=== PATIENT | female | born 1990 | race Caucasian/White ===

== ENCOUNTER 2018-09-20 11:54 | Emergency (ER) | payer OTHER ==
[~2018-09-20 11:54] MED LIST: IBUP-2077 PO; PNV91TAB3 PO
[2018-09-20 12:32] LABS: APPEARANCE,URINE Cloudy (CLEAR); BILIRUBIN,URINE Negative (NEGATIVE); COLOR,URINE Yellow (YELLOW); GLUCOSE, URINE (UA) Negative (NEGATIVE); KETONES,URINE 15 mg/dL (NEGATIVE); LEUKOCYTE ESTERASE ,URINE Small (NEGATIVE); NITRATE,URINE Negative (NEGATIVE); OCCULT BLOOD,URINE Negative (NEGATIVE); PH,URINE >=9.0 (5.0-8.0); PROTEIN,URINE Trace mg/dL (NEGATIVE)
[2018-09-20 12:35] LABS: HCG,QUAL RESULT NEGATIVE (NEGATIVE)
[2018-09-20] MEDS ORDERED: METOCLOPRAMIDE 10 MG/2 ML VIAL ONE (12:43)
[2018-09-20] MEDS ORDERED: ONDANSETRON HCL 4 MG/2 ML VIAL ONE (12:43)
[2018-09-20 12:53] LABS: RBC,URINE 0-1 /HPF (0-1); WBC,URINE 0-1 /HPF (0-1)
[2018-09-20 12:54] LABS: BACTERIA,URINE Few /HPF (None Seen)
[2018-09-20 12:55] LABS: BASOPHILS % (AUTO) 2.2 % (0.0-5.0); EOSINOPHILS % (AUTO) 0.1 % (0.0-8.0); HEMATOCRIT 43.5 % (36-48); LYMPHOCYTES % (AUTO) 10.1 % (21.0-51.0); MEAN CORPUSCULAR HEMOGLOBIN 32.6 pg (27.0-33.0); MEAN CORPUSCULAR VOLUME 93.4 fL (79-99); MONOCYTES % (AUTO) 3.1 % (3.0-13.0); NEUTROPHILS % (AUTO) 84.5 % (40.0-77.0); NUCLEATED RED BLOOD CELLS 0.1 % (0.0-0.19); PLATELET COUNT (AUTO) 173 K/uL (130-400); RED BLOOD CELL COUNT(AUTO) 4.66 MIL/uL (4.00-5.50); RED CELL DISTRIBUTION WIDTH 12.9 % (11.0-15.5)
[2018-09-20 13:14] LABS: CREATININE 0.8 mg/dL (0.5-1.5); POTASSIUM 4.1 mmol/L (3.5-5.1)
[2018-09-20] MEDS ORDERED: DiphenhydrAMINE HCL 50 MG/ML VIAL ONE (13:33)
== END 2018-09-20 14:58 | disposition home or self-care (01) ==
LOC: EDH 11:54
DX: G43.909 Migraine, unspecified, not intractable, without status migrainosus (principal); Z98.890 Other specified postprocedural states
CPT/HCPCS: 36415; 80048; 81001; 81025; 85025; 96374; 96375; 99283; J1200; J2405; J2765

== ENCOUNTER 2019-06-12 11:59 | Emergency (ER) | payer MEDICAID ==
[2019-06-12 12:47] LABS: APPEARANCE,URINE CLOUDY (CLEAR); BILIRUBIN,URINE SMALL (NEGATIVE); COLOR,URINE RED (YELLOW); GLUCOSE, URINE (UA) NEGATIVE (NEGATIVE); KETONES,URINE NEGATIVE (NEGATIVE); LEUKOCYTE ESTERASE ,URINE TRACE (NEGATIVE); NITRATE,URINE NEGATIVE (NEGATIVE); OCCULT BLOOD,URINE LARGE (NEGATIVE); PROTEIN,URINE 30 mg/dL (NEGATIVE); UROBILINOGEN,URINE 0.2 mg/dL (0.2-1.0)
[2019-06-12 13:08] LABS: HCG,QUAL RESULT NEGATIVE (NEGATIVE)
[2019-06-12 13:39] LABS: RBC,URINE TNTC /HPF (0-1); WBC,URINE 0-1 /HPF (0-1)
[2019-06-12 13:40] LABS: BACTERIA,URINE Few /HPF (None Seen)
== END 2019-06-12 13:46 | disposition home or self-care (01) ==
LOC: EDH 11:59
DX: R31.9 Hematuria, unspecified (principal); R35.0 Frequency of micturition; G43.909 Migraine, unspecified, not intractable, without status migrainosus; Z72.0 Tobacco use
CPT/HCPCS: 81001; 81025; 87088

== ENCOUNTER 2024-06-01 18:37 | Emergency (ER) | payer SELFPAY ==
[~2024-06-01] VITALS: Ht 157.5 cm; Wt 47.6 kg
[~2024-06-01 18:37] MED LIST changes: +KETO10 PO; +NITR100C4 PO; +TAMS-1 PO
[2024-06-01] MEDS: 0.9%NACL 1000ML 1,000 ML IV ONE (19:00)
[2024-06-01 19:02] LABS: BASOPHILS # (AUTO) 0.05 K/uL (0.00-0.20); BASOPHILS % (AUTO) 0.4 % (0.0-5.0); EOSINOPHILS # (AUTO) 0.01 K/uL (0.00-0.70); EOSINOPHILS % (AUTO) 0.1 % (0.0-8.0); IMMATURE GRANULOCYTE ABSOLUTE 0.04 K/uL (0-1); LYMPHOCYTES # (AUTO) 1.6 K/uL (1.0-4.8); LYMPHOCYTES % (AUTO) 12.9 % (21.0-51.0); MEAN CORPUSCULAR HEMOGLOBIN 32.2 pg (27.0-33.0); MEAN CORPUSCULAR HGB CONC 33.9 g/dL (32.0-36.0); MONOCYTES # (AUTO) 0.6 K/uL (0.1-1.0); MONOCYTES % (AUTO) 5.3 % (3.0-13.0); NEUTROPHILS # (AUTO) 9.9 K/uL (1.8-7.7); PLATELET COUNT (AUTO) 235 K/uL (130-400); RED BLOOD CELL COUNT(AUTO) 4.63 MIL/uL (4.00-5.50); RED CELL DISTRIBUTION WIDTH 13.4 % (11.0-15.5); WHITE BLOOD COUNT (AUTO) 12.2 K/uL (4.8-10.8)
[2024-06-01 19:03] LABS: APPEARANCE,URINE CLOUDY (CLEAR); BILIRUBIN,URINE NEGATIVE (NEGATIVE); COLOR,URINE YELLOW (YELLOW); GLUCOSE, URINE (UA) NEGATIVE (NEGATIVE); KETONES,URINE 40 mg/dL (NEGATIVE); LEUKOCYTE ESTERASE ,URINE 250 Leu/uL (NEGATIVE); NITRATE,URINE 1+ (NEGATIVE); OCCULT BLOOD,URINE LARGE (NEGATIVE); PROTEIN,URINE 50 mg/dL (NEGATIVE); UROBILINOGEN,URINE 0.2 mg/dL (0.2-1.0)
[2024-06-01] MEDS: ondanSETRON 4MG INJ IVP ONE (19:04)
[2024-06-01] MEDS: morPHINE 2 MG SYG IVP ONE (19:05)
[2024-06-01 19:06] LABS: ADD UA MICROSCOPIC YES
[2024-06-01 19:08] LABS: BACTERIA,URINE RARE /HPF (None Seen); MUCUS,URINE FEW LPF (None Seen); OTHER CASTS, URINE 2 /LPF (None Seen); SQUAMOUS EPITHELIAL CELL,UR FEW /HPF (0-2)
[2024-06-01] MEDS: cefTRIAXone 1G VIAL IVPB ONE (19:28)
[2024-06-01 19:33] LABS: CREATININE 0.9 mg/dL (0.5-1.0); POTASSIUM 3.8 mmol/L (3.5-5.1)
--- NOTE | 2024-06-01 20:58 | HMCIMG ---
US OB <14 WEEKS HISTORY: Pelvic pain COMPARISON: None FINDINGS: The uterus measures 8 cm in length with a 9 mm endometrial thickness. There is no identified intrauterine gestation. There is no adnexal mass. There is minimal amount of free fluid in the pelvis. The ovaries are unremarkable in size and echogenicity. There also appears to be normal ovarian vascularity. IMPRESSION: There is no identified intrauterine gestation. Small amount of free fluid in the pelvis
--- NOTE | 2024-06-01 20:58 | HMCIMG ---
US ABDOMINAL COMPLETE HISTORY: Abdominal pain COMPARISON: None FINDINGS: The liver is unremarkable. The gallbladder is free of calculi or wall thickening or pericholecystic fluid. Common duct measures 2 mm. The pancreas is unremarkable. The kidneys are unremarkable in size and echogenicity. There is no hydronephrosis or nephrolithiasis. Both kidneys measure roughly 9.5 cm length. Spleen is unremarkable. The inferior vena cava and aorta are unremarkable. IMPRESSION: Normal study
--- NOTE | 2024-06-01 21:42 | ERN ---
General Chief Complaint: Flank Pain Stated Complaint: LEFT FLANK PAIN HX OF KIDNEY STONES Time Seen by MD: 18:39 Time Seen by Midlevel: 18:39 Source: patient History of Present Illness Initial Comments Patient is a 34-year-old female with a past medical history of kidney stones presenting to the emergency department with left lower quadrant that radiates to her left flank. The pain started at 3:00 p.m. with associated nausea and vomiting. Patient believes she may have a kidney stone. Denies being at this time. She does report being sexually active and does not use any protection at this time. Allergies: Coded Allergies: No Known Drug Allergies (Unverified Allergy, Unknown, 12/20/15) Home Meds Active Scripts Cephalexin Monohydrate (Keflex) 500 Mg Cap, 500 MG PO TID for 7 Days, #21 CAP Prov:NOÉ SOSA 06/01/24 Ketorolac Tromethamine (Toradol) 10 Mg Tab, 10 MG PO QID for pain for 5 Days, #20 TAB 0 Refills Prov:LAWSON BURLESON MD 03/09/24 Tamsulosin HCl (Flomax) 0.4 Mg Cap.er.24h, 0.4 MG PO DAILY for 10 Days, #10 CAPSULE.DR Prov:LAWSON BURLESON MD 03/09/24 Nitrofurantoin Monohyd/M-Cryst (Macrobid 100 mg Capsule) 100 Mg Capsule, 100 MG PO BID for 7 Days, #14 CAP Prov:LAWSON BURLESON MD 03/09/24 Ibuprofen (Ibuprofen 800 mg Tab) 800 Mg Tab, 800 MG PO Q6H PRN for PAIN, #30 TAB Prov:NASEEM RENTERIA MD 12/21/15 Reported Medications Pnv95/Ferrous Fumarate/FA ( Caplet) 1 Each Tablet, 1 EACH PO DAILYLUNCH, TAB 12/20/15 Past Medical History Past Medical History: Kidney Stone, Migraines, UTI Past Surgical History: Other Surgical History Other: RIGHT EYE Family History Family History: Negative Social History Social History: Negative Female( History) LMP: May 28, 2024 : 2 Para: 1 Aborts: 1 ROS Dictation CONSTITUTIONAL: Negative except for HPI HEAD/FACE: Negative except for HPI EENT: Negative except for HPI RESPIRATORY: Negative except for HPI GASTROINTESTINAL/ABDOMINAL: Negative except for HPI GENITOURINARY: Negative except for HPI MUSCULOSKELETAL: Negative except for HPI INTEGUMENTARY: Negative except for HPI NEUROLOGICAL/PSYCH: Negative except for HPI HEMATOLOGIC/LYMPHATIC: Negative except for HPI All Systems Negative, Except as noted above. 13 point review of systems assessed and all negative except for above. Physical Exam Physical Exam Dictation Vital Signs reviewed General Appearance: Alert, oriented x 3, tearful, mild distress Head and Face: non-traumatic. Eyes: PERRL, pink conjunctivas, eyelid no trauma, anterior chamber with arcus senilis. Ears: Pinnas intact and no signs of trauma or erythema ear canals clear and no discharge TM no erythema Nose: No discharge, no bleeding. Oropharynx: Mouth normal, tongue pink, pharynx clear,no erythema, tonsils no exudates, no abscesses noted, mucous membrane moist Neck: Supple, non-tender, no thyromegaly, no masses, no JVD, no bruits Breast:Deferred Chest:No tenderness, no crepitus, no paradoxical movement, no retractions Lungs:Clear, well-ventilated, symmetric, no rales, no wheezing, no rhonchi, no stridor, good breath sounds bilaterally Heart: Regular rate, regular rhythm, no murmur, no gallops Vascular: no peripheral edema, Abdomen: Soft, positive bowel sounds, nondistended, no guarding, Left lower quadrant abdominal tenderness, no rebound, no masses no hepatomegaly, no splenomegaly, no Gallagher's sign, no hernias. Rectal: Deferred Genital: Deferred Neurological: Normal speech, motor function intact, sensory function intact Musculoskeletal: Neck nontender, full range of motion, back nontender, full range of motion, Extremities: nontender, full range of motion Skin: Color pink, dry, no turgor, no rash, no lacerations, no abrasions, no contusions. Lymphatic: Deferred Results Laboratory and Microbiology Lab and Micro Result Laboratory Tests Test 06/01/24 18:50 White Blood Count 12.2 K/uL (4.8-10.8) H Red Blood Count 4.63 MIL/uL (4.00-5.50) Hemoglobin 14.9 g/dL (12.0-16.0) Hematocrit 44.0 % (36-48) Mean Corpuscular Volume 95.0 fL (79-99) Mean Corpuscular Hemoglobin 32.2 pg (27.0-33.0) Mean Corpuscular Hemoglobin Concent 33.9 g/dL (32.0-36.0) Red Cell Distribution Width 13.4 % (11.0-15.5) Platelet Count 235 K/uL (130-400) Mean Platelet Volume 10.5 fL (7.5-10.5) Immature Granulocyte % (Auto) 0.3 % (0-1) Neutrophils (%) (Auto) 81.0 % (40.0-77.0) H Lymphocytes (%) (Auto) 12.9 % (21.0-51.0) L Monocytes (%) (Auto) 5.3 % (3.0-13.0) Eosinophils (%) (Auto) 0.1 % (0.0-8.0) Basophils (%) (Auto) 0.4 % (0.0-5.0) Neutrophils # (Auto) 9.9 K/uL (1.8-7.7) H Lymphocytes # (Auto) 1.6 K/uL (1.0-4.8) Monocytes # (Auto) 0.6 K/uL (0.1-1.0) Eosinophils # (Auto) 0.01 K/uL (0.00-0.70) Basophils # (Auto) 0.05 K/uL (0.00-0.20) Absolute Immature Granulocyte (auto 0.04 K/uL (0-1) Nucleated Red Blood Cells 0.0 % (0.0-0.19) Urine Color YELLOW (YELLOW) Urine Appearance CLOUDY (CLEAR) H Urine pH 6.0 (5.0-8.0) Urine Specific [place] 1.028 (1.001-1.031) Urine Protein 50 mg/dL (NEGATIVE) H Urine Glucose (UA) NEGATIVE mg/dL (NEGATIVE) Urine Ketones 40 mg/dL (NEGATIVE) H Urine Occult Blood LARGE (NEGATIVE) H Urine Nitrate 1+ (NEGATIVE) H Urine Bilirubin NEGATIVE mg/dL (NEGATIVE) Urine Urobilinogen 0.2 mg/dL (0.2-1.0) Urine Leukocyte Esterase 250 Maura/uL (NEGATIVE) H Urine RBC 6-10 /HPF (0-1) H Urine WBC 11-25 /HPF (0-1) H Urine Squamous Epithelial Cells FEW /HPF (0-2) Urine Bacteria RARE /HPF (None Seen) Urine Other Casts 2 /LPF (None Seen) Sodium Level 141 mmol/L (136-145) Potassium Level 3.8 mmol/L (3.5-5.1) Chloride Level 107 mmol/L (101-111) Carbon Dioxide Level 23 mmol/L (21-32) Blood Urea Nitrogen 12 mg/dL (7-18) Creatinine 0.9 mg/dL (0.5-1.0) Glomerular Filtration Rate Calc 87 mL/min (>90) Random Glucose 84 mg/dL (70-105) Lactic Acid Level 2.3 mmol/L (0.8-2.5) Total Calcium 9.8 mg/dL (8.5-10.1) Human Chorionic Gonadotropin, Quant 64 mIU/mL (0-5) H Serum Test, Qualitative POSITIVE (NEGATIVE) H Labs Reviewed?: Yes MDM MDM: Patient is a 34-year-old female with a past medical history of kidney stones presenting to the emergency department with left lower quadrant that radiates to her left flank. The pain started at 3:00 p.m. with associated nausea and vomiting. Patient believes she may have a kidney stone. Denies being at this time. She does report being sexually active and does not use any protection at this time. On physical examination patient is in mild distress. She is tearful during my examination. She was some left lower quadrant abdominal tenderness. She also has some left CVA tenderness. There is a high clinical suspicion for ectopic versus ureter stone. A CT scan of the abdomen and pelvis without contrast was ordered however her hCG resulted positive. An hCG quant was ordered which is only 64. The CT scan was canceled and an ultrasound of the pelvis was ordered along with an abdominal ultrasound to rule out pyelonephritis versus ureter stone. You was abdomen is negative however her pelvic ultrasound reveals no intrauterine gestation. Pelvic ultrasound also reveals free fluid in the pelvis. These findings are concerning for a possible ectopic . The case was discussed with retail loss prevention specialist Dr. Shefali Rivas who recommends discharging the patient with ectopic instructions. He agrees to see her later this week in his office for repeat hCG testing and repeat ultrasound. He states that this may be an early but since we can not fully rule out an ectopic he wants to see her in his office. This was discussed with the patient and she agrees with plan. Her urinalysis is consistent with infection. Patient was given 1 g of Rocephin IV and will be discharged home with a prescription for Keflex for outpatient management. Differential diagnosis: Ectopic , kidney stone, urinary tract infection, pyelonephritis There are no social concerns with this patient. Prescription drug management Prescriptions will include: Keflex Medical management and examination interpretation discussions were had by me with other qualified healthcare professionals as indicated for the patient's care. ED Course Orders Procedure Category Date Status Time Cbc With Differential LAB 06/01/24 Complete 18:39 Basic Metabolic Panel LAB 06/01/24 Complete 18:39 Testing, LAB 06/01/24 Complete Serum Hcg 18:39 Urinalysis Profile LAB 06/01/24 Complete 18:39 Lactic Acid LAB 06/01/24 Complete 18:39 Morphine 2mg Syg PHA 06/01/24 Complete (Morphine 2mg Syg) 19:00 Ondansetron 4mg Inj PHA 06/01/24 Complete (Zofran 4mg Inj) 19:00 0.9%Nacl 1000ml (Ns PHA 06/01/24 Complete 1000ml) 19:00 Culture Urine YESSENIA 06/01/24 In Process 19:06 Ceftriaxone 1g Vial PHA 06/01/24 Complete (Rocephine 1g Inj) 19:30 Hcg,Quantitative LAB 06/01/24 Complete 19:31 Us Ob <14 Weeks US 06/01/24 Resulted 19:34 Us Abdominal Complete US 06/01/24 Resulted 19:34 Current Medications Medications (Trade) Dose Ordered Sig/Britney Route PRN Reason Start Time Stop Time Status Last Admin Dose Admin Ceftriaxone Sodium (ROCEphine 1G INJ) 1 gm ONCE ONCE IVPB 06/01/24 19:30 06/01/24 19:31 DC 06/01/24 19:28 Morphine Sulfate (morPHINE 2MG SYG) 2 mg ONCE ONCE IVP 06/01/24 19:00 06/01/24 19:01 DC 06/01/24 19:05 Ondansetron HCl (zoFRAN 4MG INJ) 4 mg ONCE ONCE IVP 06/01/24 19:00 06/01/24 19:01 DC 06/01/24 19:04 Sodium Chloride 1,000 ml @ 0 mls/hr ONCE ONCE IV 06/01/24 19:00 06/01/24 19:01 DC 06/01/24 19:00 Vital Signs Date Time Temp Pulse Resp B/P (MAP) Pulse Ox O2 Delivery O2 Flow Rate FiO2 06/01/24 20:30 98.1 78 18 100/62 96 Room Air* 0 21 06/01/24 19:05 78 18 116/78 98 Room Air* 0 21 06/01/24 18:39 98.1 68 20 112/67 96 0 [place] [address] [id number] IMAGING REPORT Signed PATIENT: ISIDRA ANG MR#: [id number] : 1990 SEX: F AGE: 34 LOCATION: [facility] ORDER 33 STATUS: REG ER REPORT#: [id number] SERVICE 33 REASON: r/o ectopic ORDERING PHYSICIAN: NOÉ SOSA PROCEDURE: OB <14 - US OB <14 WEEKS US OB <14 WEEKS HISTORY: Pelvic pain COMPARISON: None FINDINGS: The uterus measures 8 cm in length with a 9 mm endometrial thickness. There is no identified intrauterine gestation. There is no adnexal mass. There is minimal amount of free fluid in the pelvis. The ovaries are unremarkable in size and echogenicity. There also appears to be normal ovarian vascularity. IMPRESSION: There is no identified intrauterine gestation. Small amount of free fluid in the pelvis DICTATED BY: TRACY MONTANO DO DATE: 06/01/242053 ELECTRONICALLY SIGNED BY: TRACY MONTANO DO DATE: 06/01/242057 [place] [address] [id number] IMAGING REPORT Signed PATIENT: ISIDRA ANG MR#: [id number] : 1990 SEX: F AGE: 34 LOCATION: [facility] ORDER 33 STATUS: REG ER [facility] REPORT#: [id number] SERVICE 33 REASON: r/o ectopic ORDERING PHYSICIAN: IAN,AVELINA PA PROCEDURE: ABDOMEN - US ABDOMINAL COMPLETE US ABDOMINAL COMPLETE HISTORY: Abdominal pain COMPARISON: None FINDINGS: The liver is unremarkable. The gallbladder is free of calculi or wall thickening or pericholecystic fluid. Common duct measures 2 mm. The pancreas is unremarkable. The kidneys are unremarkable in size and echogenicity. There is no hydronephrosis or nephrolithiasis. Both kidneys measure roughly 9.5 cm length. Spleen is unremarkable. The inferior vena cava and aorta are unremarkable. IMPRESSION: Normal study DICTATED BY: TRACY MONTANO DO DATE: 06/01/242051 ELECTRONICALLY SIGNED BY: TRACY MONTANO DO DATE: 06/01/242057 DX & DISP Disposition: Discharge Departure Impression: Primary Impression: UTI (urinary tract infection) Additional Impressions: Positive test, Leukocytosis Condition: Stable Scripts Cephalexin Monohydrate (Keflex) 500 Mg Cap 500 MG PO TID for 7 Days, #21 CAP Prov: NOÉ SOSA 06/01/24 Additional Instructions: Your blood work today shows a positive test.. Your hCG quant is 64. Your urinalysis is consistent with infection. You were given antibiotics in the emergency department and will be discharged home with a prescription for oral antibiotics. Your pelvic ultrasound does not show an intrauterine . This may be related to a very early since your hCG quant level is only 64. However, your ultrasound also showed a small amount of free fluid in the pelvis. This may be related to a possible ectopic . Your case was discussed with OBGYN on-call Dr. Shefali Rivas who recommends providing you with information regarding an ectopic . He agrees to see you in his office later today. If you develop any new or worsening symptoms please report to the emergency department for further evaluation. Referrals: SELF,REFERRAL (PCP) SHEFALI RIVAS JR, MD TORRES, RUBEN M Jr. MD Time of Disposition: 21:33 I have reviewed the case, and I agree with, Diagnosis and Plan I performed the substantive portion of the visit. I have reviewed and personally made and approve the management plan that is documented in the note by myself or the ENRIQUE. I acknowledge for responsibility for the patient's management plan. NOÉ SOSA Jun 01, 2024 21:42
[2024-06-01 21:45] VITALS: BP 95/61; PULSE 78; RESP 18; TEMP 98.1; O2SAT 96
[2024-06-01] MEDS ORDERED: CEPH500B PO (21:46)
== END 2024-06-01 22:00 | disposition home or self-care (01) ==
LOC: EDH 18:37
DX: O23.41 Unspecified infection of urinary tract in pregnancy, first trimester (principal); N39.0 Urinary tract infection, site not specified; O26.891 Other specified pregnancy related conditions, first trimester; R10.2 Pelvic and perineal pain
CPT/HCPCS: 99285; 96365; 76700; 76801; 96375; 80048; 84703; 84702; 85025; 87086 ×2; 87186; 83605; 81001; 36415; J2270; J7030; J0696; J2405

== ENCOUNTER 2024-06-07 15:04 | Emergency (ER) | payer SELFPAY ==
[~2024-06-07] VITALS: Ht 157.5 cm; Wt 46.3 kg
[~2024-06-07 15:04] MED LIST changes: +CEPH500B PO
--- NOTE | 2024-06-07 15:13 | ERN ---
ED Note History of Present Illness Stated Complaint: LEFT PELVIC PAIN, VAG BLEEDING 2 WEEKS Chief Complaint: Abdominal Pain in Time Seen by MD: 15:06 Dictation: Patient is a 34-year-old female coming in today with complaints of left pelvic pain and intermittent bleeding she has had for two weeks. She was seen here at [facility] on [place]/01 was diagnosed with a blighted ovum with a quant of 64. She did not follow up with Dr. Issac Rivas because she did not have any insurance and he wanted 100 dollars to be seen in his office. Allergies: Coded Allergies: No Known Drug Allergies (Unverified Allergy, Unknown, 12/20/15) Home Meds Active Scripts Cephalexin Monohydrate (Keflex) 500 Mg Cap, 500 MG PO TID for 7 Days, #21 CAP Prov:NOÉ SOSA 06/01/24 Ketorolac Tromethamine (Toradol) 10 Mg Tab, 10 MG PO QID for pain for 5 Days, #20 TAB 0 Refills Prov:LAWSON BURLESON MD 03/09/24 Tamsulosin HCl (Flomax) 0.4 Mg Cap.er.24h, 0.4 MG PO DAILY for 10 Days, #10 CAPSULE. Prov:LAWSON BURLESON MD 03/09/24 Nitrofurantoin Monohyd/M-Cryst (Macrobid 100 mg Capsule) 100 Mg Capsule, 100 MG PO BID for 7 Days, #14 CAP Prov:LAWSON BURLESON MD 03/09/24 Ibuprofen (Ibuprofen 800 mg Tab) 800 Mg Tab, 800 MG PO Q6H PRN for PAIN, #30 TAB Prov:NASEEM RENTERIA MD 12/21/15 Reported Medications Pnv95/Ferrous Fumarate/FA ( Caplet) 1 Each Tablet, 1 EACH PO DAILYLUNCH, TAB 12/20/15 Past Medical History Past Medical History: Kidney Stone, Migraines, UTI Surgical History: Other Surgical History Other: RIGHT EYE Family History: Negative Social History: Negative LMP: May 25, 2024 : 3 Para: 1 Aborts: 1 RN Note Reviewed/Agreed w/PFSH: Yes Review of System Dictation CONSTITUTIONAL: Negative except for HPI HEAD/FACE: Negative except for HPI EENT: Negative except for HPI RESPIRATORY: Negative except for HPI GASTROINTESTINAL/ABDOMINAL: Negative except for HPI left adnexal tenderness GENITOURINARY: Negative except for HPI MUSCULOSKELETAL: Negative except for HPI INTEGUMENTARY: Negative except for HPI NEUROLOGICAL/PSYCH: Negative except for HPI HEMATOLOGIC/LYMPHATIC: Negative except for HPI All Systems Negative, Except as noted above. 13 point review of systems assessed and all negative except for above. Initial Vital Sign VS Vital Signs Date Time Temp Pulse Resp B/P (MAP) Pulse Ox O2 Delivery O2 Flow Rate FiO2 06/07/24 15:06 99.1 98 16 105/63 98 Room Air 06/07/24 18:36 0 21 Physical Exam Dictation Vital Signs reviewed General Appearance: Alert, oriented x 3, mild acute distress, well developed, nourished. Head and Face: non-traumatic. Eyes: PERRL, pink conjunctivas, eyelid no trauma, anterior chamber with arcus senilis. Ears: Pinnas intact and no signs of trauma or erythema ear canals clear and no discharge TM no erythema Nose: No discharge, no bleeding. Oropharynx: Mouth normal, tongue pink, pharynx clear,no erythema, tonsils no exudates, no abscesses noted, mucous membrane moist Neck: Supple, non-tender, no thyromegaly, no masses, no JVD, no bruits Breast:Deferred Chest:No tenderness, no crepitus, no paradoxical movement, no retractions Lungs:Clear, well-ventilated, symmetric, no rales, no wheezing, no rhonchi, no stridor, good breath sounds bilaterally Heart: Regular rate, regular rhythm, no murmur, no gallops Vascular: no peripheral edema, Abdomen: Soft, positive bowel sounds, nondistended, no guarding, nontender, no rebound, no masses no hepatomegaly, no splenomegaly, no Gallagher's sign, no hernias. Rectal: Deferred Genital: Deferred mild left adnexal tenderness, palpated over her clothes. Neurological: Normal speech, motor function intact, sensory function intact Musculoskeletal: Neck nontender, full range of motion, back nontender, full range of motion, Extremities: nontender, full range of motion Skin: Color pink, dry, no turgor, no rash, no lacerations, no abrasions, no contusions. Lymphatic: Deferred Results (Laboratory/Radiology) Laboratory/Radiology Laboratory Tests Test 06/07/24 16:35 White Blood Count 8.4 K/uL (4.8-10.8) Red Blood Count 4.31 MIL/uL (4.00-5.50) Hemoglobin 13.9 g/dL (12.0-16.0) Hematocrit 42.2 % (36-48) Mean Corpuscular Volume 97.9 fL (79-99) Mean Corpuscular Hemoglobin 32.3 pg (27.0-33.0) Mean Corpuscular Hemoglobin Concent 32.9 g/dL (32.0-36.0) Red Cell Distribution Width 13.5 % (11.0-15.5) Platelet Count 226 K/uL (130-400) Mean Platelet Volume 10.4 fL (7.5-10.5) Immature Granulocyte % (Auto) 0.2 % (0-1) Neutrophils (%) (Auto) 56.9 % (40.0-77.0) Lymphocytes (%) (Auto) 32.5 % (21.0-51.0) Monocytes (%) (Auto) 8.9 % (3.0-13.0) Eosinophils (%) (Auto) 1.0 % (0.0-8.0) Basophils (%) (Auto) 0.5 % (0.0-5.0) Neutrophils # (Auto) 4.8 K/uL (1.8-7.7) Lymphocytes # (Auto) 2.7 K/uL (1.0-4.8) Monocytes # (Auto) 0.7 K/uL (0.1-1.0) Eosinophils # (Auto) 0.08 K/uL (0.00-0.70) Basophils # (Auto) 0.04 K/uL (0.00-0.20) Absolute Immature Granulocyte (auto 0.02 K/uL (0-1) Nucleated Red Blood Cells 0.0 % (0.0-0.19) Sodium Level 140 mmol/L (136-145) Potassium Level 3.7 mmol/L (3.5-5.1) Chloride Level 105 mmol/L (101-111) Carbon Dioxide Level 29 mmol/L (21-32) Blood Urea Nitrogen 12 mg/dL (7-18) Creatinine 1.0 mg/dL (0.5-1.0) Glomerular Filtration Rate Calc 77 mL/min (>90) Random Glucose 67 mg/dL (70-105) L Total Calcium 9.4 mg/dL (8.5-10.1) Human Chorionic Gonadotropin, Quant 349 mIU/mL (0-5) H OB ULTRASOUND DEMONSTRATES NO IUP AT THIS TIME PATIENT DOES HAVE A12 X 8 MM NABOTHIAN CYST US OB <14 WEEKS HISTORY: Left adnexal tenderness COMPARISON: None TECHNIQUE: Obstetrical ultrasound study was performed. FINDINGS: The uterus measures 7.3 x 3.7 x 5.1 centimeter. Right ovary measures 2.9 x 1.6 x 1.8 centimeter. Left ovary measures 2.4 x 1.5 x 2 centimeter. Flow is seen in both ovaries. No evidence of intrauterine gestational sac is seen. In a patient with positive test, differential diagnosis would include early versus ectopic versus missed . Beta-hCG correlation is recommended. No fluid is seen in the cul-de-sac. IMPRESSION: 1. No evidence of intrauterine gestational sac is seen. In a patient with positive test, differential diagnosis would include early versus ectopic versus missed . Beta-hCG correlation is recommended. Labs Reviewed?: Yes ED Course ED Course Orders Procedure Category Date Status Time Acetaminophen 500mg PHA 06/07/24 Complete Tab (Tylenol 500mg T 15:30 Cbc With Differential LAB 06/07/24 Complete 15:10 Hcg,Quantitative LAB 06/07/24 Complete 15:10 Us Ob <14 Weeks US 06/07/24 Resulted 15:10 Basic Metabolic Panel LAB 06/07/24 Complete 15:10 Current Medications Medications (Trade) Dose Ordered Sig/Britney Route PRN Reason Start Time Stop Time Status Last Admin Dose Admin Acetaminophen (TYLenol 500MG TAB) 1,000 mg ONCE ONCE PO 06/07/24 15:30 06/07/24 15:31 DC Vital Signs Date Time Temp Pulse Resp B/P (MAP) Pulse Ox O2 Delivery O2 Flow Rate FiO2 06/07/24 18:36 97.5 78 18 126/79 99 Room Air* 0 21 06/07/24 15:06 99.1 98 16 105/63 98 Room Air 735 PATIENT DISCHARGED HOME WITH HCG QUANT 364, 64 ON HER LAST VISIT ON 06/01. NO INTRAUTERINE PATIENT WILL BE REFERRED BACK TO DR. ISSAC RIVAS Medical Decision Making MDM MDM: DIFFERENTIAL DIAGNOSIS: INCOMPLETE AB/ECTOPIC /ANEMIA/ELECTROLYTE IMBALANCE/OVARIAN CYST/MASS RATIONALE: TESTS CONSIDERED AND ORDERED SECONDARY TO SHARED DECISION MAKING INCLUDE: ULTRASOUND/LABS PREVIOUS OUTSIDE RECORDS REVIEWED: OLD ER VISITS. REVIEWED CHART FROM 06/01/2024 VISIT RISK OF COMPLICATION AND/OR MORBIDITY OR MORTALITY OF PATIENT MANAGEMENT: NONE MEDICATIONS-PER MEDICATION RECONCILIATION SEE NURSE'S NOTES NEED FOR HOSPITALIZATION: PATIENT DOES NOT MEET CRITERIA FOR HOSPITALIZATION. NEED FOR EMERGENCY MAJOR/MINOR SURGERY: NO NO THERE ARE NO SOCIAL CONCERNS WITH THIS PATIENT. PRESCRIPTION DRUG MANAGEMENT NONE PRESCRIPTIONS WILL INCLUDE SYMPTOMATIC CARE PATIENT'S PRIOR EXTERNAL MEDICAL RECORDS FROM OTHER ER VISITS WERE REVIEWED BY ME INDICATED. PRIOR TESTING AND RESULTS FROM PREVIOUS VISITS WERE REVIEWED. PRIOR TESTS WERE TAKEN INTO ACCOUNT WITH MEDICAL DECISION MAKING AND RESOURCE UTILIZATION, INDEPENDENT HISTORIAN/HISTORIANS WERE USED TO OBTAIN COMPLETE MEDI COLBY HISTORY. I INDEPENDENTLY INTERPRETED THE TEST THAT WERE PERFORMED, RESULTS WERE REVIEWED BY ME AND CONSIDERED FINDINGS ON RADIOLOGY IF ORDERED. MEDICAL MANAGEMENT AND EXAMINATION INTERPRETATION DISCUSSIONS WERE HAD BY ME WITH OTHER QUALIFIED HEALTHCARE PROFESSIONALS INDICATED FOR THE PATIENT'S CARE. DX & DISP Disposition: Discharge Departure Impression: Primary Impression: Pelvic pain Additional Impression: Positive test Condition: Stable Additional Instructions: FOLLOW-UP WITH PRIMARY CARE PROVIDER IN 1 TO 2 DAYS. TAKE MEDICATIONS DIRECTED HERE IN THE EMERGENCY ROOM. OKAY TO CONTINUE HOME MEDICATIONS UNLESS OTHERWISE DISCUSSED DURING YOUR VISIT IN THE EMERGENCY ROOM TODAY. RETURN TO YOUR NEAREST EMERGENCY ROOM IF SYMPTOMS WORSEN OR IF THERE IS NO IMPROVEMENT. CALL 911 IF YOU NEED IMMEDIATE ASSISTANCE. TAKE TYLENOL [id number] NEEDED AND IF NO CONTRAINDICATIONS ARE PRESENT. INCREASE ORAL HYDRATION. A WOUND CULTURE OR URINE CULTURE WAS ORDERED HERE IN THE EMERGENCY ROOM DEPARTMENT PLEASE FOLLOW-UP WITH PRIMARY CARE PROVIDER AND ADVISE THEM TO GET REPEAT PORTS FROM OUR FACILITY. IF YOU HAD ANY KAUSHIK WRAP/SPLINTS THAT WERE APPLIED HERE, PLEASE DO NOT REMOVE THEM UNTIL YOU SEE YOUR PRIMARY CARE OR SPECIALTY. CONTINUE VITAMINS/[id number]. CALL DR. ISSAC RIVAS FOR AN APPOINTMENT IN 1-2 DAYS. Referrals: SELF,REFERRAL (PCP) SHEFALI RIVAS JR, MD Time of Disposition: 17:39 I have reviewed the case, and I agree with, Diagnosis and Plan I performed this substantive portion of this visit. I have reviewed and personally made and approve the management plan that is documented in the note by myself or the ENRIQUE. I acknowledge full responsibility for the patient's management plan. SUHAIL BARRON NP Jun 07, 2024 15:13 BRYANT MARCIAL MD Jun 07, 2024 18:56
[2024-06-07] MEDS ORDERED: acetaMINOPHEN 500 MG TABLET PO ONE (15:30)
--- NOTE | 2024-06-07 16:34 | HMCIMG ---
US OB <14 WEEKS HISTORY: Left adnexal tenderness COMPARISON: None TECHNIQUE: Obstetrical ultrasound study was performed. FINDINGS: The uterus measures 7.3 x 3.7 x 5.1 centimeter. Right ovary measures 2.9 x 1.6 x 1.8 centimeter. Left ovary measures 2.4 x 1.5 x 2 centimeter. Flow is seen in both ovaries. No evidence of intrauterine gestational sac is seen. In a patient with positive test, differential diagnosis would include early versus ectopic versus missed . Beta-hCG correlation is recommended. No fluid is seen in the cul-de-sac. IMPRESSION: 1. No evidence of intrauterine gestational sac is seen. In a patient with positive test, differential diagnosis would include early versus ectopic versus missed . Beta-hCG correlation is recommended.
[2024-06-07 16:40] LABS: BASOPHILS # (AUTO) 0.04 K/uL (0.00-0.20); BASOPHILS % (AUTO) 0.5 % (0.0-5.0); EOSINOPHILS # (AUTO) 0.08 K/uL (0.00-0.70); HEMATOCRIT 42.2 % (36-48); IMMATURE GRANULOCYTE ABSOLUTE 0.02 K/uL (0-1); LYMPHOCYTES # (AUTO) 2.7 K/uL (1.0-4.8); LYMPHOCYTES % (AUTO) 32.5 % (21.0-51.0); MEAN CORPUSCULAR HEMOGLOBIN 32.3 pg (27.0-33.0); MEAN CORPUSCULAR HGB CONC 32.9 g/dL (32.0-36.0); MEAN CORPUSCULAR VOLUME 97.9 fL (79-99); MONOCYTES # (AUTO) 0.7 K/uL (0.1-1.0); MONOCYTES % (AUTO) 8.9 % (3.0-13.0); NEUTROPHILS # (AUTO) 4.8 K/uL (1.8-7.7); NEUTROPHILS % (AUTO) 56.9 % (40.0-77.0); PLATELET COUNT (AUTO) 226 K/uL (130-400); RED BLOOD CELL COUNT(AUTO) 4.31 MIL/uL (4.00-5.50); RED CELL DISTRIBUTION WIDTH 13.5 % (11.0-15.5); WHITE BLOOD COUNT (AUTO) 8.4 K/uL (4.8-10.8)
[2024-06-07 16:50] LABS: POTASSIUM 3.7 mmol/L (3.5-5.1)
--- NOTE | 2024-06-07 18:34 | NUR ---
ASSUMED CARE AT THIS TIME.
[2024-06-07 18:36] VITALS: BP 126/79; PULSE 78; RESP 18; TEMP 97.6; O2SAT 99
== END 2024-06-07 18:49 | disposition home or self-care (01) ==
LOC: EDH 15:04
DX: O26.891 Other specified pregnancy related conditions, first trimester (principal); R10.2 Pelvic and perineal pain; Z79.899 Other long term (current) drug therapy
CPT/HCPCS: 36415; 76801; 80048; 84702; 85025; 99284